=== PATIENT | male | born 1980 | race Caucasian/White ===

== ENCOUNTER 2017-04-09 04:04 | Emergency (ER) | payer BC ==
[~2017-04-09] VITALS: Ht 177.8 cm; Wt 89.4 kg
--- NOTE | 2017-04-09 04:12 | ER Report ---
History and Physical Time Seen By MD: 04:11 HPI/ROS CHIEF COMPLAINT: cough, fevers/chills HISTORY OF PRESENT ILLNESS: This is a 36 year old male. He has been sick since yesterday morning. He has been having fevers and chills. Cough with chest tightness. Has asthma in the past, but does not need medications now. Feeling some wheezing. Says it feels like he is trying to cough up a pinecone. He has runny nose and sore throat. Very fatigued and having some dizziness as well. Has been trying to stay hydrated. Has had 2 of the 32oz bottle of Gatorade. He has some mild nausea. No diarrhea or changes in bowels. No problems with urination. Has no known sick contacts. REVIEW OF SYSTEMS: Constitutional: No fever or chills. Eyes: No vision changes. ENT: As above. Cardiovascular: As above. Respiratory: As above. Gastrointestinal: No abdominal pain. Genitourinary: No frequency Musculoskeletal: Having some body aches Skin: No rashes. Neurological: Mild headache. Allergies: Coded Allergies: codeine (Verified Allergy, Intermediate, SWELLING, 04/09/17) Home Meds Active Scripts Benzonatate 100 Mg Cap (TESSALON PERLE 100 MG CAP) 100 Mg Capsule, 100 MG PO TID Y for COUGH, #15 CAP 0 Refills Prov:LI SANCHEZ MD 04/09/17 Prednisone (PREDNISONE) 20 Mg Tablet, 40 MG PO QDAY for 4 Days, #8 TAB 0 Refills Prov:LI SANCHEZ MD 04/09/17 Constitutional Vital Sign - Last 24 Hours 04/09/17 04/09/17 04/09/17 04/09/17 04:07 04:10 04:29 04:29 Temp 99.2 Pulse 121 123 Resp 16 16 B/P (MAP) 144/94 (111) 144/94 Pulse Ox 94 93 O2 Delivery Room Air Room Air 04/09/17 04/09/17 04/09/17 04/09/17 04:34 05:04 05:09 05:14 Pulse 127 120 117 Resp 16 B/P (MAP) 136/78 (97) Pulse Ox 87 04/09/17 04/09/17 04/09/17 05:29 05:30 05:44 Pulse 118 108 B/P (MAP) 126/76 (93) Pulse Ox 93 93 Physical Exam General Appearance: The patient is alert, has no immediate need for airway protection and no current signs of toxicity. Eyes: Pupils equal and round no injection. ENT: Normal oral mucosa. Moist mucous membranes. Posterior oropharynx with some erythema and mild postnasal drainage, but no exudates or hypertrophy. Tympanic membranes are normal. Neck: Neck is supple and non tender. Respiratory: Chest is non tender to palpation, lungs are clear to auscultation. Cardiac: regular rate and rhythm Gastrointestinal: Abdomen is soft and non tender, no masses, bowel sounds normal. Musculoskeletal: Extremities have full range of motion. Skin: No rashes or lesions. DIFFERENTIAL DIAGNOSIS: After history and physical exam differential diagnosis was considered for cough, congestion, sore throat and runny nose, nausea, headache, all likely due to viral syndrome but look for other pulmonary infectious process. Also dealing with asthma exacerbation and will give some steroid and a breathing treatment. Medical Decision Making Data Points Result Diagram: 04/09/17 0435 04/09/17 0435 Laboratory Hematology Test 04/09/17 04:35 04/09/17 04:50 04/09/17 05:08 Red Blood Count 5.18 M/uL (4.00-5.60) Mean Corpuscular Volume 92.0 fL (80.0-96.0) Mean Corpuscular Hemoglobin 31.9 pg (26.0-33.0) Mean Corpuscular Hemoglobin Concent 34.7 g/dL (32.0-36.0) Red Cell Distribution Width 13.3 % (11.5-14.5) Mean Platelet Volume 8.6 fL (7.2-11.1) Neutrophils (%) (Auto) 60.4 % (39.4-72.5) Lymphocytes (%) (Auto) 27.3 % (17.6-49.6) Monocytes (%) (Auto) 11.4 % (4.1-12.4) Eosinophils (%) (Auto) 0.3 % (0.4-6.7) Basophils (%) (Auto) 0.6 % (0.3-1.4) Nucleated RBC Relative Count (auto) 0.1 /100WBC Neutrophils # (Auto) 3.2 K/uL (2.0-7.4) Lymphocytes # (Auto) 1.4 K/uL (1.3-3.6) Monocytes # (Auto) 0.6 K/uL (0.3-1.0) Eosinophils # (Auto) 0.0 K/uL (0.0-0.5) Basophils # (Auto) 0.0 K/uL (0.0-0.1) Nucleated RBC Absolute Count (auto) 0.00 K/uL Sodium Level 137 mmol/L (137-145) Potassium Level 3.5 mmol/L (3.5-5.0) Chloride Level 103 mmol/L (98-107) Carbon Dioxide Level 21 mmol/L (22-30) Blood Urea Nitrogen 11 mg/dl (9-21) Creatinine 1.10 mg/dl (0.66-1.25) Glomerular Filtration Rate Calc > 60.0 Random Glucose 125 mg/dl (75-110) Calcium Level 8.6 mg/dl (8.4-10.2) Total Bilirubin 0.6 mg/dl (0.2-1.3) Aspartate Amino Transf (AST/SGOT) 26 U/L (0-35) Alanine Aminotransferase (ALT/SGPT) 46 U/L (0-56) Alkaline Phosphatase 67 U/L (0-126) Total Protein 6.9 gm/dl (6.3-8.2) Albumin 4.1 g/dl (3.5-5.0) Influenza Type A Antigen Negative (NEGATIVE) Influenza Type B Antigen Negative (NEGATIVE) Urine Color Yellow Urine Clarity Clear Urine pH 5.0 pH (4.8-9.5) Urine Specific [place] 1.018 Urine Protein Negative mg/dL (NEGATIVE) Urine Glucose (UA) Negative mg/dL (NEGATIVE) Urine Ketones Trace mg/dL (NEGATIVE) Urine Blood Negative (NEGATIVE) Urine Nitrite Negative (NEGATIVE) Urine Bilirubin Negative (NEGATIVE) Urine Urobilinogen Negative mg/dL (0.2-1.9) Urine Leukocyte Esterase Negative (NEGATIVE) Urine RBC None /HPF (0-2/HPF) Urine WBC 2 /HPF (0-5/HPF) Urine Squamous Epithelial Cells Few /LPF (</=FEW) Urine Bacteria Few /HPF (NONE-FEW) Urine Mucus Few /HPF (NONE-FEW) Chemistry Test 04/09/17 04:35 04/09/17 04:50 04/09/17 05:08 White Blood Count 5.3 k/uL (4.5-11.0) Red Blood Count 5.18 M/uL (4.00-5.60) Hemoglobin 16.5 g/dL (14.0-18.0) Hematocrit 47.6 % (42.0-52.0) Mean Corpuscular Volume 92.0 fL (80.0-96.0) Mean Corpuscular Hemoglobin 31.9 pg (26.0-33.0) Mean Corpuscular Hemoglobin Concent 34.7 g/dL (32.0-36.0) Red Cell Distribution Width 13.3 % (11.5-14.5) Platelet Count 169 K/uL (150-450) Mean Platelet Volume 8.6 fL (7.2-11.1) Neutrophils (%) (Auto) 60.4 % (39.4-72.5) Lymphocytes (%) (Auto) 27.3 % (17.6-49.6) Monocytes (%) (Auto) 11.4 % (4.1-12.4) Eosinophils (%) (Auto) 0.3 % (0.4-6.7) Basophils (%) (Auto) 0.6 % (0.3-1.4) Nucleated RBC Relative Count (auto) 0.1 /100WBC Neutrophils # (Auto) 3.2 K/uL (2.0-7.4) Lymphocytes # (Auto) 1.4 K/uL (1.3-3.6) Monocytes # (Auto) 0.6 K/uL (0.3-1.0) Eosinophils # (Auto) 0.0 K/uL (0.0-0.5) Basophils # (Auto) 0.0 K/uL (0.0-0.1) Nucleated RBC Absolute Count (auto) 0.00 K/uL Glomerular Filtration Rate Calc > 60.0 Calcium Level 8.6 mg/dl (8.4-10.2) Total Bilirubin 0.6 mg/dl (0.2-1.3) Aspartate Amino Transf (AST/SGOT) 26 U/L (0-35) Alanine Aminotransferase (ALT/SGPT) 46 U/L (0-56) Alkaline Phosphatase 67 U/L (0-126) Total Protein 6.9 gm/dl (6.3-8.2) Albumin 4.1 g/dl (3.5-5.0) Influenza Type A Antigen Negative (NEGATIVE) Influenza Type B Antigen Negative (NEGATIVE) Urine Color Yellow Urine Clarity Clear Urine pH 5.0 pH (4.8-9.5) Urine Specific [place] 1.018 Urine Protein Negative mg/dL (NEGATIVE) Urine Glucose (UA) Negative mg/dL (NEGATIVE) Urine Ketones Trace mg/dL (NEGATIVE) Urine Blood Negative (NEGATIVE) Urine Nitrite Negative (NEGATIVE) Urine Bilirubin Negative (NEGATIVE) Urine Urobilinogen Negative mg/dL (0.2-1.9) Urine Leukocyte Esterase Negative (NEGATIVE) Urine RBC None /HPF (0-2/HPF) Urine WBC 2 /HPF (0-5/HPF) Urine Squamous Epithelial Cells Few /LPF (</=FEW) Urine Bacteria Few /HPF (NONE-FEW) Urine Mucus Few /HPF (NONE-FEW) Urinalysis Test 04/09/17 05:08 Urine Color Yellow Urine Clarity Clear Urine pH 5.0 pH (4.8-9.5) Urine Specific [place] 1.018 Urine Protein Negative mg/dL (NEGATIVE) Urine Glucose (UA) Negative mg/dL (NEGATIVE) Urine Ketones Trace mg/dL (NEGATIVE) Urine Blood Negative (NEGATIVE) Urine Nitrite Negative (NEGATIVE) Urine Bilirubin Negative (NEGATIVE) Urine Urobilinogen Negative mg/dL (0.2-1.9) Urine Leukocyte Esterase Negative (NEGATIVE) Urine RBC None /HPF (0-2/HPF) Urine WBC 2 /HPF (0-5/HPF) Urine Squamous Epithelial Cells Few /LPF (</=FEW) Urine Bacteria Few /HPF (NONE-FEW) Urine Mucus Few /HPF (NONE-FEW) EKG/Imaging Imaging CHEST PA AND LATERAL 04/09/2017 4:22 AM. INDICATION: Cough, fever. COMPARISON: None. FINDINGS: Lungs are well-expanded. The lungs are clear. No pneumothorax or pleural effusion. Pulmonary vasculature is unremarkable. Heart size is normal. IMPRESSION: No acute abnormality. Report Dictated By: Arias Sheppard MD at 04/09/2017 5:07 AM ED Course/Re-evaluation Clinical Indication for ER IV: Hydration, IV Access ED Course Improved with Solu-Medrol and breathing treatment. Viral infection with asthma exacerbation. Decision to Disposition Date: Apr 09, 2017 Decision to Disposition Time: 05:30 Depart Departure Latest Vital Signs Vital Signs Date Time Temp Pulse Resp B/P (MAP) Pulse Ox O2 Delivery O2 Flow Rate FiO2 04/09/17 05:44 108 93 04/09/17 05:30 126/76 (93) 04/09/17 04:34 16 04/09/17 04:29 Room Air 04/09/17 04:10 99.2 Impression: Primary Impression: Upper respiratory infection Additional Impression: Asthma exacerbation Condition: Improved Disposition: HOME OR SELF-CARE New Scripts Benzonatate 100 Mg Cap (TESSALON PERLE 100 MG CAP) 100 Mg Capsule 100 MG PO TID Y for COUGH, #15 CAP 0 Refills Prov: LI SANCHEZ MD 04/09/17 Prednisone (PREDNISONE) 20 Mg Tablet 40 MG PO QDAY for 4 Days, #8 TAB 0 Refills Prov: LI SANCHEZ MD 04/09/17 Patient Instructions: Asthma (ED), Upper Respiratory Infection (ED) Additional Instructions: Rest and increase fluid intake. Take Ibuprofen or Tylenol as needed for fever or aches and pains. Use Albuterol inhaler, 2 puffs inhaled every 4 hours as needed for wheezing or shortness of breath. Take Prednisone 20mg tablets, 2 tablets once a day for 4 days starting this morning. You can continue to use over the counter cold and cough medications. You can try using Tessalon Perles 100mg every 8 hours as needed to help suppress your cough. Symptoms from a viral infection usually last 7-10 days and should peak at 3-5 days after onset of symptoms. Problem Qualifiers Primary Impression: Upper respiratory infection URI type: unspecified viral URI Qualified Codes: J06.9 - Acute upper respiratory infection, unspecified Additional Impression: Asthma exacerbation Asthma severity: mild Asthma persistence: intermittent Qualified Codes: J45.21 - Mild intermittent asthma with (acute) exacerbation LI SANCHEZ MD Apr 09, 2017 04:12
[2017-04-09] MEDS ORDERED: methylPREDNIS SUCC 125 MG/2ML IVP ONE (04:25)
[2017-04-09] MEDS ORDERED: KETOROLAC 30 MG/ML VIAL IVP ONE (04:25)
[2017-04-09] MEDS ORDERED: ALBUTEROL 2.5 MG/3 ML NEB NEB ONE (04:25)
[2017-04-09] MEDS ORDERED: ONDANSETRON 4 MG/2 ML VIAL IVP ONE (04:25)
[2017-04-09] MEDS ORDERED: NS(*) 0.9% 1000 ML BAG 1,000 ML IV ONE (04:25)
[2017-04-09 04:47] LABS: PLATELET COUNT, AUTOMATED 169 K/uL (150-450)
--- NOTE | 2017-04-09 05:18 | RADIOLOGY IMAGING REPORT ---
FACILITY: [facility] PATIENT NAME: Franco Degroot : 1980 MR: [id number] V: [id number] EXAM DATE: ORDERING PHYSICIAN: LI SANCHEZ TECHNOLOGIST: Location: [facility] - [place] Patient: Franco Degroot : 1980 Visit/Account:[id number] Date of Sevice: 04/09/2017 CHEST PA AND LATERAL 04/09/2017 4:22 AM. INDICATION: Cough, fever. COMPARISON: None. FINDINGS: Lungs are well-expanded. The lungs are clear. No pneumothorax or pleural effusion. Pulmo nary vasculature is unremarkable. Heart size is normal. IMPRESSION: No acute abnormality. Report Dictated By: Arias Sheppard MD at 04/09/2017 5:07 AM Report E-Signed By: Arias Sheppard MD at 04/09/2017 5:08 AM WSN:[id number]
[2017-04-09 05:30] VITALS: BP 126/76
[2017-04-09] MEDS ORDERED: PRED20TA6 PO (05:33)
[2017-04-09] MEDS ORDERED: BENZ100C4 PO (05:33)
[2017-04-09] MEDS ORDERED: ALBUTEROL SULFATE 90 MCG/ACT 8.5 GM HNH INH ONE (06:20)
== END 2017-04-09 06:43 | disposition home or self-care (01) ==
LOC: ER 04:09
DX: J06.9 Acute upper respiratory infection, unspecified (principal); J45.21 Mild intermittent asthma with (acute) exacerbation
CPT/HCPCS: 71046; 81001; 85025; 87502; 94640; 96361; 96374; 96375; 99284; J1885; J2405; J2930; J7030; J7613; 82040; 82247; 82310; 82374; 82435; 82565; 82947; 84075; 84132; 84155; 84295; 84450; 84460; 84520

== ENCOUNTER → 2017-05-09 | Outpatient (CLI) | payer BC ==
[~2017-05-09] MED LIST: BENZ100C4 PO; PRED20TA6 PO
--- NOTE | 2017-05-09 17:25 | RADIOLOGY IMAGING REPORT ---
FACILITY: [facility] PATIENT NAME: Franco Degroot : 1980 MR: [id number] V: [id number] EXAM DATE: ORDERING PHYSICIAN: WAGNER JHA TECHNOLOGIST: Location: [facility] - [place] Patient: Franco Degroot : 1980 Visit/Account:[id number] Date of Sevice: 05/09/2017 Exam type: CHEST PA AND LAT History: Is of breath and wheezing for two months Comparison: April 09, 2017. Findings: The lungs are free of acute effusions, infiltrates or edema. Cardiac silhouette is normal in size. The trachea is midline. No evidence of a pneumothorax or pneumomediastinum. The visualized bones ar e unremarkable. IMPRESSION: 1. No acute cardiopulmonary process is seen Report Dictated By: Kathy Lester MD at 05/09/2017 5:20 PM Report E-Signed By: Kathy Lester MD at 05/09/2017 5:21 PM [id number]:[email or web address]
== END ==
LOC: RAD 16:39
PROVIDERS: ATTEND Nurse Practitioner Family
DX: R06.02 Shortness of breath (principal); J45.20 Mild intermittent asthma, uncomplicated
CPT/HCPCS: 71046